=== PATIENT | male | born 1940 | race American Indian/Alaskan Native ===

== ENCOUNTER 2018-09-21 04:17 | Emergency (ER) | payer MEDICARE ==
--- NOTE | 2018-09-21 04:47 | Emergency Department Report ---
ED CPR HPI - General Stated Complaint: CARDIAC ARREST Time Seen by Provider: 09/21/18 04:27 Source: EMS, old records reviewed (none available for review) Mode of arrival: Carried (Peds) Limitations: Altered Mental Status, Physical Limitation - History of Present Illness Initial Comments: 78-year-old male with a past medical history of hypertension (other PMHX unknown at this time) presents via EMS in cardiopulmonary arrest. EMS is that patient was found unresponsive in not breathing by family members at home 40 minutes prior to arrival. They have been resuscitating the patient for 30 minutes without return in spontaneous circulation. Initial rhythm upon their arrival was asystole. They did have a shockable rhythm during the resuscitation efforts and patient did receive defibrillation at 200 J. patient was intubated with a 8.0 ET tube. He received 6 rounds of epi, 1 amp of bicarbonate, and an Accu- Chek which was in normal range. Patient presents apneic, pulseless, and in PEA arrest with fists and dilated pupils despite 30 minutes of resuscitation efforts. Patient's and grandson came to the ER were informed of patient's . They were able to provide some additional history of present illness. Patient returned from the bathroom of the back into the bed and noticed that he was making a funny sound why he was breathing. She initially thought it was because he needed to place his CPAP back on but noticed that he was not responding. 911 was called and patient was placed onto the floor as instructed. They report the patient started breathing and was unresponsive prior to EMS arrival. MD Complaint: found unresponsive, stopped breathing ED Review of Systems ROS: Stated complaint: CARDIAC ARREST Other details as noted in HPI Comment: Unobtainable due to pts medical conditions ED Physical Exam - Other Other exam information: General: unresponsive Head exam: Atraumatic, normocephalic Eyes exam: pupils fixed and dilated pupils ENT: Orally intubated with 8.0 ET tube Neck exam: Normal inspection Respiratory exam: No spontaneous respirations, equal breath sounds bilaterally with bag Cardiovascular: Pulseless not audible heart beat, cyanosis to fingers without capillary refill Abdomen: Soft, nondistended, no breath sounds over the epigastrium with bagging Extremity: Normal inspection, no spontaneous movement Back: Normal Inspection Neurologic: GCS equals 3 Psychiatric: Unresponsive Skin: 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 Pr Presents with fixed and dilated pupils. We continued cpr upon arrival. Once pt placed on monitor he had a very bradycardic PEA at time of pulse check. I felt that further resuscitation deficits are futile at this time. Time of 4:16 AM ED Medical Decision Making - Differential Diagnosis mi, pe, hypoxia, hypercapnia, arrhythmia Critical Care Time: Yes Critical care time in (mins) excluding proc time.: 15 Critical care attestation.: If time is entered above; I have spent that time in minutes in the direct care of this critically ill patient, excluding procedure time. ED Disposition Clinical Impression: Cardiopulmonary arrest Disposition: DC-20 Is pt being admited?: No Condition: Serious Time of Disposition: 05:10
[2018-09-21 04:56] VITALS: BP 0/0
== END 2018-09-21 10:35 ==
LOC: ED 04:17
DX: I46.9 Cardiac arrest, cause unspecified (principal)
CPT/HCPCS: 92950; 99285